=== PATIENT | female | born 1990 | race African-American/Black ===

== ENCOUNTER 2021-08-01 14:02 | Emergency (ER) | payer MEDICAID ==
[~2021-08-01] VITALS: Ht 165.1 cm; Wt 60.8 kg
--- NOTE | 2021-08-01 14:30 | NUR ---
THE PATIENT BIBS FOR BURNING SENSATION UPON URINATION & LIP SORE PER PT. NO LESIONS ON THE LIP NOTED. DENIES PAIN. WILL CONTINUE TO MONITOR THE PATIENT.
[2021-08-01 15:04] LABS: BILIRUBIN,URINE Negative (NEGATIVE); COLOR,URINE YELLOW (YELLOW); LEUKOCYTE ESTERASE ,URINE Negative (NEGATIVE); NITRITE, URINE Negative (NEGATIVE); PROTEIN,URINE Negative (NEGATIVE); UGLUCOSE Negative (NEGATIVE); UROBILINOGEN,URINE 0.2 EU/dL (0.2)
[2021-08-01] MEDS ORDERED: VALA100026 PO (15:23)
[2021-08-01 15:51] VITALS: BP 111/63
--- NOTE | 2021-08-01 15:51 | NUR ---
Patient discharged to home in stable condition. Written and verbal after care instructions given. Patient verbalizes understanding of instruction.
== END 2021-08-01 15:51 | disposition home or self-care (01) ==
LOC: ER 14:05
DX: B00.1 Herpesviral vesicular dermatitis (principal); R35.0 Frequency of micturition
CPT/HCPCS: 84703-TC